=== PATIENT | male | born 1990 | race African-American/Black ===

== ENCOUNTER 2025-08-06 23:12 | Emergency (ER) | payer OTHER ==
[~2025-08-06] VITALS: Ht 180.3 cm; Wt 104.0 kg
[2025-08-06 23:38] LABS: BASO # 0.0 10^3/uL (0.0-0.2); BASO % 0.5 % (0.0-1.0); EOS # 0.2 10^3/uL (0.0-0.5); EOS % 3.6 % (0.0-3.0); LYMPH # 2.6 10^3/uL (1.5-5.0); LYMPH % 46.6 % (24.0-44.0); MONO # 0.4 10^3/uL (0.0-0.8); MONO % 7.2 % (2.0-8.0); NEUTROPHILS # 2.3 10^3/uL (1.5-8.5); NEUTROPHILS % 41.9 % (36.0-66.0); PLATELET COUNT, AUTOMATED 248 10^3/uL (150-450)
[2025-08-07 00:21] LABS: ALT/SGPT 58 U/L (7.0-40); AST/SGOT 43 U/L (<34); CALCIUM LEVEL 9.1 MG/DL (8.5-10.1); CARBON DIOXIDE LEVEL 26 MMOL/L (20-31); CHLORIDE LEVEL 105 MMOL/L (98-107); CK-MB VALUE MASS 1.6 NG/ML (<3.6); CREATININE FOR GFR 0.94 MG/DL (0.70-1.30); GLOMERULAR FILTRATION RATE > 90.0 (>60); POTASSIUM SERUM 4.8 MMOL/L (3.5-5.1); SODIUM LEVEL 141 MMOL/L (136-145)
[2025-08-07 00:22] LABS: CPK CREATINE PHOSPHOKINASE 457 U/L (46-171); MB/CK RELATIVE INDEX 0.35 (< OR =4)
[2025-08-07] MEDS ORDERED: ISOVUE-370 76% 100 ML VIAL As Ordered ONE (05:44)
[2025-08-07] MEDS: NS (Normal Saline) 0.9% 1,000 ML IV ONE (06:23)
[2025-08-07] MEDS: KETOROLAC 30 MG/ML 1 ML VIAL IV ONE (06:28)
[2025-08-07 07:12] LABS: CK-MB VALUE MASS 1.1 NG/ML (<3.6)
[2025-08-07 07:15] LABS: CPK CREATINE PHOSPHOKINASE 359.0 U/L (46-171); MB/CK RELATIVE INDEX 0.3 (< OR =4)
[2025-08-07 07:45] VITALS: BP 106/68; TEMP 96.7; O2SAT 98
== END 2025-08-07 07:45 | disposition home or self-care (01) ==
LOC: M ED 23:12
DX: R07.9 Chest pain, unspecified (principal)
CPT/HCPCS: 71275; 80048; 80076; 82550; 82553; 83690; 84484; 85025; 93005; 96374; 99284; J1885; Q9967

== ENCOUNTER → 2025-08-09 | Outpatient (REF) | payer OTHER ==
[2025-08-09 12:12] LABS: SEMEN APPEARANCE OPAQUE (OPAQUE); SEMEN VISCOSITY LIQUID (LIQUID); SEMEN VOLUME 4.8 ml (2.0-5.0)
[2025-08-09 12:13] LABS: SPERM CONCENTRATION 74.1 M/ml (>=15.0); TOTAL PROGRESSIVE SPERM 77.1 M/Ejac.; WBC CONCENTRATION <=1 M/ml (<=1 M/ml)
== END ==
LOC: M LAB REF 12:01
PROVIDERS: ATTEND Physician Assistant
DX: N46.9 Male infertility, unspecified (principal)